=== PATIENT | female | born 1955 | race Asian ===

== ENCOUNTER 2017-03-14 23:35 | Inpatient (IN) | payer MEDICARE ==
[~2017-03-14] VITALS: Ht 170.2 cm; Wt 102.5 kg
[~2017-03-14 23:35] MED LIST: AMLO5TAB4 PO; ASPI500P3 PO; CHOL200012 PO; CIPR500T87 PO; GLIM2TAB2 PO; HYDR-3307 PO; LOVA20TA2 PO; METF100P3 PO; OLME20TA PO; OMEP-110 PO; ONDA4TAB10 PO
[2017-03-15] MEDS ORDERED: MORPHINE SULFATE 4 MG/ML, 1ML IVPush PRN
[2017-03-15] MEDS ORDERED: MORPHINE SULFATE 4 MG/ML, 1ML ONE
[2017-03-15] MEDS ORDERED: SODIUM CHLORIDE FLUSH 10ML SYR IVF ONE
[2017-03-15 00:25] LABS: ASPARTATE AMINO TRANSFERASE 19 U/L (15-37); BLOOD UREA NITROGEN 15 mg/dL (7-18)
[2017-03-15 00:30] LABS: IS PT STATUS REG ER OR PRE ER? YES
[2017-03-15] MEDS ORDERED: ASPIRIN 81 MG TABLET CHEW ONE (00:50)
[2017-03-15] MEDS ORDERED: NITROGLYCERIN SINGLE TAB 0.4 MG SL ONE ×2 (00:50→01:00)
[2017-03-15] MEDS ORDERED: HEPARIN 25,000 UNITS/500ML PMX 500 ML ONE (00:59)
[2017-03-15] MEDS ORDERED: HEPARIN 5,000 UNITS/ML, 1ML IV ONE (01:00)
[2017-03-15] MEDS ORDERED: HEPARIN 5,000 UNITS/ML, 1ML ONE (01:00)
[2017-03-15] MEDS ORDERED: ASPIRIN 81 MG TABLET CHEW PO ONE (01:00)
[2017-03-15] MEDS ORDERED: HEPARIN 5,000 UNITS/ML, 1ML IV PRN (01:00)
[2017-03-15] MEDS ORDERED: HEPARIN 25,000 UNITS/500ML PMX 500 ML IV PRN (01:00)
[2017-03-15] MEDS ORDERED: ESCI10TA PO (01:09)
[2017-03-15] MEDS ORDERED: PANT40TA5 PO (01:09)
[2017-03-15] MEDS ORDERED: GLIM1TAB2 PO (01:09)
[2017-03-15] MEDS ORDERED: LOSA50TA6 PO (01:09)
[2017-03-15] MEDS ORDERED: ASPI-496 PO (01:09)
[2017-03-15] MEDS ORDERED: NITROGLYCERIN 0.4 MG BOTTLE (25 TABS) SL PRN (01:30)
[2017-03-15] MEDS ORDERED: POLYETHYLENE GLYCOL 17 GM PACKET PO PRN (01:30)
[2017-03-15] MEDS ORDERED: OXYcodone IR 5MG TABLET PO PRN (01:30)
[2017-03-15] MEDS ORDERED: hydrALAzine 20 MG/ML, 1ML IVPush PRN (01:30)
[2017-03-15] MEDS ORDERED: LOVASTATIN 40 MG TABLET PO SCH ×2 (01:30→21:00)
[2017-03-15] MEDS ORDERED: BISACODYL 10 MG SUPP PR PRN (01:30)
[2017-03-15] MEDS ORDERED: ENALAPRILAT 1.25 MG/ML, 2ML IVPush PRN (01:30)
[2017-03-15] MEDS ORDERED: morphine SULFATE 10 MG/ML, 1ML IVPush PRN (01:30)
[2017-03-15] MEDS ORDERED: ONDANSETRON 2MG/ML, 2ML IVPush PRN (01:30)
[2017-03-15 02:26] VITALS: BP 147/84
[2017-03-15] MEDS: SODIUM CHLORIDE 0.9% 1,000 ML IV SCH ×2 (02:41→09:20)
[2017-03-15] MEDS: ASPIRIN 325 MG TABLET EC PO SCH (05:54)
[2017-03-15 06:29] LABS: PATH.CAST-FLAG NOT PRESENT; SPERM-FLAG NOT PRESENT; SRC-FLAG NOT PRESENT; XTAL-FLAG NOT PRESENT; YLC-FLAG NOT PRESENT
[2017-03-15 06:44] LABS: BLOOD UREA NITROGEN 14 mg/dL (7-18)
[2017-03-15 06:49] LABS: ASPARTATE AMINO TRANSFERASE 16 U/L (15-37)
[2017-03-15 06:50] LABS: IS PT STATUS REG ER OR PRE ER? NO
[2017-03-15] MEDS: INSULIN ASPART 100 UNITS/ML, PEN SQ-INSULIN SCH ×4 (07:00→21:00)
[2017-03-15 07:13] VITALS: BP 121/77
[2017-03-15] MEDS: CHOLECALCIFEROL 1,000 UNIT TABLET PO SCH (08:47)
[2017-03-15] MEDS: PANTOPROZOLE 40MG TABLET PO SCH ×2 (08:48→21:15)
[2017-03-15] MEDS: LOSARTAN 50MG TABLET PO SCH (08:48)
[2017-03-15] MEDS: CITALOPRAM 20 MG TABLET PO SCH (08:49)
[2017-03-15] MEDS: SENNA/DOCUSATE TABLET PO SCH (08:50)
[2017-03-15] MEDS ORDERED: AMLODIPINE 5 MG TABLET PO SCH (09:00)
[2017-03-15] MEDS ORDERED: TEMPLATE NON-FORMULARY MED. (Olmesartan Medoxomil** (Benicar**) 20 MG) PO SCH (09:00)
[2017-03-15] MEDS ORDERED: SODIUM CHLORIDE 0.9% 1,000 ML IV SCH ×3 (09:29→19:00)
[2017-03-15] MEDS ORDERED: CARVEDILOL 6.25 MG TABLET PO SCH (09:30)
[2017-03-15 10:18] LABS: IS PT STATUS REG ER OR PRE ER? NO
[2017-03-15 10:39] VITALS: BP 123/83
[2017-03-15] MEDS ORDERED: FENTANYL PF 100 MCG/2ML ONE (11:27)
[2017-03-15] MEDS ORDERED: MIDAZOLAM 1 MG/ML, 5ML ONE (11:27)
[2017-03-15] MEDS ORDERED: HEPARIN 1,000 UNITS/ML, 10ML ONE (11:28)
[2017-03-15] MEDS ORDERED: VERAPAMIL 2.5 MG/ML, 2ML ONE (11:28)
[2017-03-15] MEDS ORDERED: BIVALIRUDIN 250 MG ONE (11:28)
[2017-03-15] MEDS ORDERED: LIDOCAINE 2%, 20ML ONE (11:28)
[2017-03-15] MEDS ORDERED: TICAGRELOR 90 MG TABLET ONE (11:28)
[2017-03-15 12:57] VITALS: BP 128/79
[2017-03-15 18:33] VITALS: BP 127/70
[2017-03-15] MEDS ORDERED: ATORVASTATIN 40 MG TABLET PO SCH (21:00)
[2017-03-15] MEDS: CARVEDILOL 6.25 MG TABLET PO SCH (21:15)
[2017-03-16 02:30] VITALS: BP 127/75
[2017-03-16] MEDS: ASPIRIN 325 MG TABLET EC PO SCH (06:39)
[2017-03-16] MEDS: CARVEDILOL 6.25 MG TABLET PO SCH (06:39)
[2017-03-16] MEDS: INSULIN ASPART 100 UNITS/ML, PEN SQ-INSULIN SCH ×2 (07:00→11:00)
[2017-03-16 07:23] VITALS: BP 123/75
[2017-03-16] MEDS: PANTOPROZOLE 40MG TABLET PO SCH (09:48)
[2017-03-16] MEDS: SENNA/DOCUSATE TABLET PO SCH (09:49)
[2017-03-16] MEDS: CHOLECALCIFEROL 1,000 UNIT TABLET PO SCH (09:49)
[2017-03-16] MEDS: CITALOPRAM 20 MG TABLET PO SCH (09:49)
[2017-03-16] MEDS: LOSARTAN 50MG TABLET PO SCH (09:49)
[2017-03-16] MEDS ORDERED: NITR0.4T SL (11:15)
[2017-03-16] MEDS ORDERED: CARV6.2512 PO (11:15)
[2017-03-16] MEDS ORDERED: ASPI-650 PO (11:15)
[2017-03-16] MEDS ORDERED: ATOR40TA78 PO (11:15)
[2017-03-16] MEDS ORDERED: POLY17PO5 PO (11:15)
[2017-03-16] MEDS ORDERED: PNEUMOCOCCAL 23 VACCINE IM-VACC ONE (13:30)
[2017-03-16] MEDS ORDERED: LOVASTATIN 40 MG TABLET PO SCH (21:00)
== END 2017-03-16 13:55 | disposition home or self-care (01) | DRG 280 ==
LOC: ED 23:59 → EDIP 03-15 01:33 → 5SO 03-15 02:05
PROVIDERS: ADMIT Internal Medicine; ATTEND Internal Medicine
PROC: 4A023N7 Measurement of Cardiac Sampling and Pressure, Left Heart, Percutaneous Approach (ICD-10-PCS; principal; 2017-03-15)
PROC: B2111ZZ Fluoroscopy of Multiple Coronary Arteries using Low Osmolar Contrast (ICD-10-PCS; 2017-03-15)
PROC: B2151ZZ Fluoroscopy of Left Heart using Low Osmolar Contrast (ICD-10-PCS; 2017-03-15)
DX: I21.4 Non-ST elevation (NSTEMI) myocardial infarction (principal); N17.0 Acute kidney failure with tubular necrosis; Q25.0 Patent ductus arteriosus; I51.81 Takotsubo syndrome; K21.9 Gastro-esophageal reflux disease without esophagitis; E78.5 Hyperlipidemia, unspecified; E11.9 Type 2 diabetes mellitus without complications; E66.9 Obesity, unspecified; I11.9 Hypertensive heart disease without heart failure; Z79.82 Long term (current) use of aspirin; Z85.038 Personal history of other malignant neoplasm of large intestine; Z87.891 Personal history of nicotine dependence; Z90.49 Acquired absence of other specified parts of digestive tract; Z93.3 Colostomy status; Z68.35 Body mass index [BMI] 35.0-35.9, adult
CPT/HCPCS: 36415; 71010; 80053; 80061; 81001; 82962; 83036; 83690; 83735; 84443; 84484; 85025; 85520; 85610; 87086; 90732; 93005; 93306; 93458; 96374; 96375; 99156; C1894; J0583; J1644; J2250; J3010; J3490; J7030; Q9967

== ENCOUNTER 2017-04-13 04:32 | Observation (INO) | payer MEDICARE ==
[~2017-04-13] VITALS: Ht 170.2 cm; Wt 102.0 kg
[~2017-04-13 04:32] MED LIST changes: +ASPI-496 PO; +ASPI-650 PO; +ATOR40TA78 PO; +CARV6.2512 PO; +ESCI10TA PO; +GLIM1TAB2 PO; +LOSA50TA6 PO; +NITR0.4T SL; +PANT40TA5 PO; +POLY17PO5 PO
[2017-04-13] MEDS ORDERED: SODIUM CHLORIDE FLUSH 10ML SYR IVF ONE (05:00)
[2017-04-13] MEDS ORDERED: SODIUM CHLORIDE 0.9% 1,000 ML IV ONE (05:00)
[2017-04-13] MEDS ORDERED: ASPIRIN 81 MG TABLET CHEW PO ONE (05:00)
[2017-04-13] MEDS ORDERED: CARV12.52 PO (05:04)
[2017-04-13] MEDS ORDERED: ASPIRIN 81 MG TABLET CHEW ONE (05:05)
[2017-04-13 05:56] LABS: BLOOD UREA NITROGEN 18 mg/dL (7-18)
[2017-04-13 05:57] LABS: ASPARTATE AMINO TRANSFERASE 27 U/L (15-37)
[2017-04-13 06:09] LABS: IS PT STATUS REG ER OR PRE ER? YES
[2017-04-13 08:51] VITALS: BP 161/82
[2017-04-13] MEDS: metFORMIN 500 MG TABLET PO SCH ×2 (09:00→20:02)
[2017-04-13] MEDS: CHOLECALCIFEROL 1,000 UNIT TABLET PO SCH (09:00)
[2017-04-13] MEDS: GLIMEPIRIDE 1 MG TABLET PO SCH (09:00)
[2017-04-13] MEDS ORDERED: CITALOPRAM 10 MG TABLET PO SCH (09:00)
[2017-04-13] MEDS: CARVEDILOL 12.5 MG TABLET PO SCH ×2 (09:00→19:59)
[2017-04-13] MEDS: PANTOPROZOLE 40MG TABLET PO SCH ×2 (09:00→20:03)
[2017-04-13] MEDS: LOSARTAN 50MG TABLET PO SCH (09:00)
[2017-04-13] MEDS: ASPIRIN 325 MG TABLET EC PO SCH (09:00)
[2017-04-13] MEDS ORDERED: ONDANSETRON 2MG/ML, 2ML IVPush PRN (09:30)
[2017-04-13] MEDS ORDERED: morphine SULFATE 10 MG/ML, 1ML IVPush PRN (09:30)
[2017-04-13] MEDS ORDERED: NITROGLYCERIN 0.4 MG BOTTLE (25 TABS) SL PRN (09:30)
[2017-04-13] MEDS ORDERED: hydrALAzine 20 MG/ML, 1ML IVPush PRN (09:30)
[2017-04-13] MEDS ORDERED: GUAIFENESIN/DM 200-20MG, 10ML UDC PO PRN (09:30)
[2017-04-13] MEDS ORDERED: DOCUSATE 100 MG CAPSULE PO PRN (09:30)
[2017-04-13] MEDS ORDERED: HYDROcodone/APAP 5/325 TABLET PO PRN (09:30)
[2017-04-13] MEDS: HEPARIN 5,000 UNITS/ML, 1ML SQ SCH ×2 (10:34→22:18)
[2017-04-13] MEDS ORDERED: ONDANSETRON 2MG/ML, 2ML IV PRN (11:00)
[2017-04-13] MEDS ORDERED: KETOROLAC 30 MG/1 ML IV ONE (11:00)
[2017-04-13] MEDS ORDERED: DIAZEPAM 5 MG/ML, 2ML IV PRN (11:00)
[2017-04-13] MEDS ORDERED: morphine SULFATE 10 MG/ML, 1ML IV PRN (11:00)
[2017-04-13] MEDS ORDERED: PROMETHAZINE 25 MG/ML, 1ML IM PRN (11:00)
[2017-04-13] MEDS ORDERED: DIAZEPAM 5 MG TABLET PO PRN (11:00)
[2017-04-13] MEDS ORDERED: DIPHENHYDRAMINE 50 MG/ML, 1ML IVPush PRN (11:00)
[2017-04-13] MEDS ORDERED: NS + 20MEQ KCL 1,000 ML IV SCH (11:00)
[2017-04-13] MEDS: INSULIN ASPART 100 UNITS/ML, PEN SQ-INSULIN SCH ×3 (11:00→21:00)
[2017-04-13] MEDS ORDERED: HYDROmorphone 2 MG/ML, 1ML IM PRN (11:00)
[2017-04-13] MEDS ORDERED: HYDROmorphone 2MG TABLET PO PRN (11:00)
[2017-04-13] MEDS ORDERED: OXYcodone/APAP 5/325MG TABLET PO PRN (11:00)
[2017-04-13 12:35] LABS: IS PT STATUS REG ER OR PRE ER? NO
[2017-04-13 13:11] VITALS: BP 145/80
[2017-04-13 18:30] LABS: IS PT STATUS REG ER OR PRE ER? NO
[2017-04-13] MEDS ORDERED: KETOROLAC 30 MG/1 ML IM SCH (18:30)
[2017-04-13] MEDS ORDERED: KETOROLAC 30 MG/1 ML IVPush SCH (18:30)
[2017-04-13 19:07] VITALS: BP 147/85
[2017-04-13] MEDS ORDERED: MAALOX/HYOSCYAMINE/LIDOCAINE 45 ML BTL PO ONE (19:30)
[2017-04-13 20:13] VITALS: BP 146/88
[2017-04-13] MEDS ORDERED: ZOLPIDEM 5MG TABLET PO PRN (21:00)
[2017-04-13] MEDS ORDERED: ATORVASTATIN 40 MG TABLET PO SCH (21:00)
[2017-04-14 04:43] VITALS: BP 148/69
[2017-04-14] MEDS: ASPIRIN 325 MG TABLET EC PO SCH (04:44)
[2017-04-14 05:39] LABS: BLOOD UREA NITROGEN 15 mg/dL (7-18)
[2017-04-14] MEDS: INSULIN ASPART 100 UNITS/ML, PEN SQ-INSULIN SCH ×2 (07:00→11:00)
[2017-04-14 07:53] VITALS: BP 144/74
[2017-04-14] MEDS: LOSARTAN 50MG TABLET PO SCH (07:59)
[2017-04-14] MEDS: PANTOPROZOLE 40MG TABLET PO SCH (08:00)
[2017-04-14] MEDS: CHOLECALCIFEROL 1,000 UNIT TABLET PO SCH (08:00)
[2017-04-14] MEDS: metFORMIN 500 MG TABLET PO SCH (08:00)
[2017-04-14] MEDS: GLIMEPIRIDE 1 MG TABLET PO SCH (08:00)
[2017-04-14] MEDS: CARVEDILOL 12.5 MG TABLET PO SCH (09:00)
[2017-04-14] MEDS ORDERED: CARVEDILOL 6.25 MG TABLET PO SCH (09:30)
[2017-04-14 10:25] VITALS: BP 162/78
[2017-04-14] MEDS: HEPARIN 5,000 UNITS/ML, 1ML SQ SCH (10:28)
[2017-04-14 11:34] VITALS: BP_SYST 158; BP_SYST 166; BP_DIAS 74; BP_DIAS 76
[2017-04-14 13:27] VITALS: BP 145/69
[2017-04-14] MEDS ORDERED: HYDR-3342 PO (13:42)
[2017-04-14] MEDS ORDERED: CARV6.2512 PO (13:42)
[2017-04-14 15:12] VITALS: BP 146/77
== END 2017-04-14 16:35 | disposition home or self-care (01) ==
LOC: ED 05:57 → INTOOBSV 07:11 → EDIP 07:11 → 5SO 08:22
PROVIDERS: ADMIT Hospitalist; ATTEND Hospitalist
DX: R07.89 Other chest pain (principal); I51.81 Takotsubo syndrome; I42.9 Cardiomyopathy, unspecified; I10 Essential (primary) hypertension; E78.5 Hyperlipidemia, unspecified; E11.9 Type 2 diabetes mellitus without complications; I25.2 Old myocardial infarction; Z85.038 Personal history of other malignant neoplasm of large intestine; Z93.3 Colostomy status; Z90.49 Acquired absence of other specified parts of digestive tract
CPT/HCPCS: 36415; 71010; 80048; 80053; 82962; 83690; 83735; 84100; 84484; 85025; 93005; 93308; 96360; 96361; 96372; 99285; G0378; J1644; J1815; J7030

== ENCOUNTER 2018-09-14 09:51 | Emergency (ER) | payer MEDICARE ==
[~2018-09-14] VITALS: Ht 170.2 cm; Wt 91.0 kg
[~2018-09-14 09:51] MED LIST changes: +CARV12.52 PO; -CHOL200012 PO; +CHOL200074 PO; +HYDR-3342 PO; -LOSA50TA6 PO; +LOSA50TA7 PO; -OLME20TA PO; +OLME20TA17 PO
--- NOTE | 2018-09-14 10:02 | NUR ---
PER [facility] PT HAD CO RAD 57 OF 3 THEN ZERO ON ARRIVAL TO ER. PT IN NAD. PT DENIES ANY COMPLAINT.
[2018-09-14] MEDS ORDERED: LORazepam 1MG TABLET ONE (10:18)
[2018-09-14] MEDS ORDERED: LIDOCAINE-MPF 1%, 5ML ONE (10:18)
[2018-09-14 11:09] VITALS: BP 161/90
== END 2018-09-14 11:14 | disposition home or self-care (01) ==
LOC: ED 10:31
DX: J70.5 Respiratory conditions due to smoke inhalation (principal); J15.9 Unspecified bacterial pneumonia; I10 Essential (primary) hypertension; I25.2 Old myocardial infarction; Z85.038 Personal history of other malignant neoplasm of large intestine; E78.5 Hyperlipidemia, unspecified; X08.8XXA Exposure to other specified smoke, fire and flames, initial encounter; Y93.89 Activity, other specified; Y92.009 Unspecified place in unspecified non-institutional (private) residence as the place of occurrence of the external cause; Y99.8 Other external cause status
CPT/HCPCS: 36415; 71046; 82375; 93005; 99284